=== PATIENT | male | born 1980 | race African-American/Black ===

== ENCOUNTER 2021-02-27 03:35 | Emergency (ER) | payer MEDICAID ==
[~2021-02-27] VITALS: Ht 180.3 cm; Wt 105.0 kg
[2021-02-27] MEDS ORDERED: LORAZEPAM 2MG/ML CPJ IM ONE (04:00)
[2021-02-27] MEDS ORDERED: HALOPERIDOL LACTATE 5MG/ML VIAL IM ONE (04:00)
[2021-02-27 04:32] LABS: BASOPHILS % 0.4 % (0.0-2.0); EOSINOPHILS % 0.6 % (0.0-5.0); HEMATOCRIT. 45.2 % (42.0-52.0); HEMOGLOBIN. 15.4 g/dL (14.0-18.0); LYMPHOCYTES % 28.1 % (20.0-50.0); MEAN CORPUSCULAR HEMOGLOBIN 30.2 pg (28.0-32.0); MEAN CORPUSCULAR VOLUME 88.5 fL (80.0-94.0); MEAN PLATELET VOLUME 8.9 fl (7.4-10.4); MONOCYTES % 12.6 % (2.0-8.0); NEUTROPHILS % 58.3 % (40.0-76.0); PLATELET 305 x1000/uL (130-400); RED BLOOD CELL COUNT 5.11 mill/uL (4.7-6.1); RED CELL DISTRIBUTION WIDTH 14.4 % (11.6-14.6)
[2021-02-27 04:37] LABS: CHLORIDE 103 mEq/L (98-107)
[2021-02-27 04:43] LABS: ETHANOL BLOOD 27 mg/dL
[2021-02-27 15:44] LABS: CLARITY URINE CLEAR (CLEAR); COLOR URINE YELLOW (YELLOW); KETONES URINE NEGATIVE (NEGATIVE); LEUKOCYTE ESTERASE URINE NEGATIVE (NEGATIVE); NITRITE URINE NEGATIVE (NEGATIVE); OCCULT BLOOD URINE NEGATIVE (NEGATIVE); PH URINE 5.5 (4.5-8.0); PROTEIN URINE TRACE (NEGATIVE); SPECIFIC GRAVITY URINE 1.012 (1.005-1.030); UROBILINOGEN URINE 0.2 E.U./dL (0.2-1.0)
[2021-02-27 16:04] LABS: *AMPHETAMINES SCREEN URINE PRESUMTIVE POSITIVE (NEGATIVE); *BARBITURATES SCREEN URINE NEGATIVE (NEGATIVE); *BENZODIAZEPINES SCREEN URINE NEGATIVE (NEGATIVE); *COCAINE SCREEN URINE NEGATIVE (NEGATIVE); METHADONE URINE SCREEN NEGATIVE (NEGATIVE)
[2021-02-27 16:05] LABS: CANNABINOID URINE SCREEN NEGATIVE (NEGATIVE); OPIATES URINE SCREEN NEGATIVE (NEGATIVE); PHENCYCLIDINE URINE SCREEN NEGATIVE (NEGATIVE)
[2021-02-28] MEDS ORDERED: BUSPIRONE HCL 10MG TABLET PO ONE (11:15)
[2021-02-28] MEDS ORDERED: OLANZAPINE 5MG TABLET ODT PO ONE (11:15)
[2021-02-28] MEDS: FLUOXETINE HCL 10 MG CAPSULE PO SCH (11:49)
[2021-03-01] MEDS: FLUOXETINE HCL 10 MG CAPSULE PO SCH (09:56)
[2021-03-01] MEDS ORDERED: BUSPIRONE HCL 10MG TABLET PO SCH (18:00)
[2021-03-01] MEDS ORDERED: FLUOXETINE HCL 20MG CAPSULE PO SCH (18:00)
[2021-03-01] MEDS: OLANZAPINE 5MG TABLET ODT PO SCH ×2 (18:00→21:15)
[2021-03-02 09:05] VITALS: BP 146/88
[2021-03-02] MEDS ORDERED: POTASSIUM CHLORIDE 20MEQ TABLET SR PO ONE (10:45)
[2021-03-02] MEDS ORDERED: TRAZODONE HCL 50MG TABLET PO SCH (21:00)
== END 2021-03-02 11:10 ==
LOC: ER 03:35
DX: R45.850 Homicidal ideations (principal); F19.129 Other psychoactive substance abuse with intoxication, unspecified; I10 Essential (primary) hypertension; F20.9 Schizophrenia, unspecified; Z20.822 Contact with and (suspected) exposure to COVID-19
CPT/HCPCS: 36415; 80053; 80305; 80307; 80320; 80329; 81003; 85025; 87426; 93005; 96372; 99285; J1630; J2060; G0480

== ENCOUNTER 2021-07-01 00:58 | Emergency (ER) | payer MEDICAID, OTHER ==
[~2021-07-01] VITALS: Ht 182.9 cm; Wt 71.0 kg
[2021-07-01] MEDS ORDERED: OLANZAPINE 10 MG/VIAL IM STA (01:48)
[2021-07-01 02:23] LABS: BASOPHILS % 0.8 % (0.0-2.0); EOSINOPHILS % 1.8 % (0.0-5.0); HEMATOCRIT. 46.8 % (42.0-52.0); HEMOGLOBIN. 15.9 g/dL (14.0-18.0); LYMPHOCYTES % 37.5 % (20.0-50.0); MEAN CORPUSCULAR HEMOGLOBIN 30.6 pg (28.0-32.0); MEAN CORPUSCULAR VOLUME 89.7 fL (80.0-94.0); MEAN PLATELET VOLUME 9.3 fl (7.4-10.4); MONOCYTES % 13.4 % (2.0-8.0); NEUTROPHILS % 46.5 % (40.0-76.0); PLATELET 266 x1000/uL (130-400); RED BLOOD CELL COUNT 5.21 mill/uL (4.7-6.1); RED CELL DISTRIBUTION WIDTH 14.8 % (11.6-14.6)
[2021-07-01 02:32] LABS: CHLORIDE 104 mEq/L (98-107)
[2021-07-01 02:36] LABS: ETHANOL BLOOD < 10 mg/dL
[2021-07-01] MEDS ORDERED: POTASSIUM CHLORIDE 20MEQ TABLET SR PO NR (03:00)
[2021-07-01 09:36] LABS: CLARITY URINE CLEAR (CLEAR); COLOR URINE YELLOW (YELLOW); KETONES URINE NEGATIVE (NEGATIVE); LEUKOCYTE ESTERASE URINE NEGATIVE (NEGATIVE); NITRITE URINE NEGATIVE (NEGATIVE); OCCULT BLOOD URINE NEGATIVE (NEGATIVE); PH URINE 5.5 (4.5-8.0); PROTEIN URINE TRACE (NEGATIVE); UROBILINOGEN URINE 0.2 E.U./dL (0.2-1.0)
[2021-07-01 09:49] LABS: *AMPHETAMINES SCREEN URINE PRESUMTIVE POSITIVE (NEGATIVE); *BARBITURATES SCREEN URINE NEGATIVE (NEGATIVE); *BENZODIAZEPINES SCREEN URINE NEGATIVE (NEGATIVE); *COCAINE SCREEN URINE NEGATIVE (NEGATIVE); METHADONE URINE SCREEN NEGATIVE (NEGATIVE); OPIATES URINE SCREEN NEGATIVE (NEGATIVE)
[2021-07-01 09:50] LABS: CANNABINOID URINE SCREEN NEGATIVE (NEGATIVE); PHENCYCLIDINE URINE SCREEN NEGATIVE (NEGATIVE)
[2021-07-01 13:43] VITALS: BP 124/90
== END 2021-07-01 13:49 | disposition home or self-care (01) ==
LOC: ER 00:58
DX: R45.851 Suicidal ideations (principal); F20.9 Schizophrenia, unspecified; F31.9 Bipolar disorder, unspecified; I10 Essential (primary) hypertension; Z20.822 Contact with and (suspected) exposure to COVID-19
CPT/HCPCS: 36415; 80053; 80305; 80307; 80320; 80329; 81003; 85025; 87426; 96372; 99285; J3490; G0480

== ENCOUNTER 2022-08-23 12:11 | Emergency (ER) | payer MEDICAID, OTHER ==
[~2022-08-23] VITALS: Ht 172.7 cm; Wt 86.0 kg
[2022-08-23 12:14] VITALS: BP 110/65
[2022-08-23] MEDS ORDERED: LISI10TA26 MT (13:27)
[2022-08-23] MEDS ORDERED: LORAZEPAM 2MG/ML CPJ IM STA (13:54)
[2022-08-23] MEDS ORDERED: OLANZAPINE 10 MG/VIAL IM STA (13:54)
[2022-08-23 14:30] LABS: BASOPHILS % 0.3 % (0.0-2.0); EOSINOPHILS % 0.4 % (0.0-5.0); HEMATOCRIT. 45.1 % (42.0-52.0); LYMPHOCYTES % 13.3 % (20.0-50.0); MEAN CORPUSCULAR HEMOGLOBIN 31.2 pg (28.0-32.0); MEAN CORPUSCULAR VOLUME 93.7 fL (80.0-94.0); MEAN PLATELET VOLUME 9.6 fl (7.4-10.4); MONOCYTES % 11.5 % (2.0-8.0); NEUTROPHILS % 74.5 % (40.0-76.0); PLATELET 234 x1000/uL (130-400); RED BLOOD CELL COUNT 4.82 mill/uL (4.7-6.1); RED CELL DISTRIBUTION WIDTH 14.2 % (11.6-14.6)
[2022-08-23 14:40] LABS: CHLORIDE 105 mEq/L (98-107)
[2022-08-23 14:49] LABS: ETHANOL BLOOD < 10 mg/dL
== END 2022-08-23 16:31 | disposition left against medical advice (07) ==
LOC: ER 12:11
DX: R45.851 Suicidal ideations (principal); I10 Essential (primary) hypertension; F11.90 Opioid use, unspecified, uncomplicated; Z76.0 Encounter for issue of repeat prescription
CPT/HCPCS: 36415; 80053; 80307; 80320; 80329; 85025; 99283; J2060; J3490; G0480

== ENCOUNTER 2022-08-23 15:34 | Emergency (ER) | payer MEDICAID ==
[~2022-08-23] VITALS: Ht 177.8 cm; Wt 81.0 kg
[~2022-08-23 15:34] MED LIST: LISI10TA26 MT
[2022-08-23] MEDS ORDERED: OLANZAPINE 10 MG/VIAL IM ONE (18:15)
[2022-08-23] MEDS ORDERED: LORAZEPAM 2MG/ML CPJ IM ONE (18:15)
[2022-08-24 07:02] LABS: BASOPHILS % 0.3 % (0.0-2.0); EOSINOPHILS % 1.5 % (0.0-5.0); HEMATOCRIT. 40.2 % (42.0-52.0); HEMOGLOBIN. 13.5 g/dL (14.0-18.0); LYMPHOCYTES % 22.7 % (20.0-50.0); MEAN CORPUSCULAR HEMOGLOBIN 31.3 pg (28.0-32.0); MEAN PLATELET VOLUME 9.5 fl (7.4-10.4); MONOCYTES % 11.4 % (2.0-8.0); NEUTROPHILS % 64.1 % (40.0-76.0); PLATELET 203 x1000/uL (130-400); RED BLOOD CELL COUNT 4.32 mill/uL (4.7-6.1); RED CELL DISTRIBUTION WIDTH 13.8 % (11.6-14.6)
[2022-08-24 07:06] LABS: CHLORIDE 105 mEq/L (98-107)
[2022-08-24 07:13] LABS: ETHANOL BLOOD < 10 mg/dL
[2022-08-24 10:30] VITALS: BP 129/82
== END 2022-08-24 12:02 | disposition home or self-care (01) ==
LOC: ER 15:34
DX: F32.9 Major depressive disorder, single episode, unspecified (principal); F15.19 Other stimulant abuse with unspecified stimulant-induced disorder; I10 Essential (primary) hypertension; F20.9 Schizophrenia, unspecified
CPT/HCPCS: 36415; 80053; 80320; 85025; 96372; 99285; J2060; J3490; G0480